=== PATIENT | female | born 1950 | race Caucasian/White ===

== ENCOUNTER 2021-02-01 08:53 | Outpatient (CLI) | payer MEDICARE, OTHER | END 2021-02-01 08:54 | disposition home or self-care (01) | LOC: CSHMAMMO 08:53 | PROVIDERS: ATTEND Obstetrics & Gynecology | DX: N63.20 Unspecified lump in the left breast, unspecified quadrant (principal) | CPT/HCPCS: 76642; 77065; G0279 ==

== ENCOUNTER 2021-11-26 14:50 | Outpatient (CLI) | payer MEDICARE, OTHER | END 2021-11-26 14:51 | disposition home or self-care (01) | LOC: CSHLAB 14:50 | PROVIDERS: ATTEND Family Medicine | DX: Z20.822 Contact with and (suspected) exposure to COVID-19 (principal) | CPT/HCPCS: 87811 ==

== ENCOUNTER 2021-12-01 08:28 | Outpatient (CLI) | payer MEDICARE, OTHER | END 2021-12-01 08:29 | disposition home or self-care (01) | LOC: CSHRAD 08:28 | PROVIDERS: ATTEND Family Medicine | DX: G35 Multiple sclerosis (principal); R13.10 Dysphagia, unspecified; K22.89 Other specified disease of esophagus; K21.9 Gastro-esophageal reflux disease without esophagitis; K44.9 Diaphragmatic hernia without obstruction or gangrene | CPT/HCPCS: 74220 ==

== ENCOUNTER 2022-02-02 09:47 | Outpatient (CLI) | payer MEDICARE, OTHER | END 2022-02-02 09:48 | disposition home or self-care (01) | LOC: CSHMAMMO 09:47 | PROVIDERS: ATTEND Family Medicine | DX: Z12.31 Encounter for screening mammogram for malignant neoplasm of breast (principal) | CPT/HCPCS: 77063; 77067 ==

== ENCOUNTER 2023-03-20 13:25 | Outpatient (CLI) | payer MEDICARE, OTHER | END 2023-03-20 13:26 | disposition home or self-care (01) | LOC: CSHMAMMO 13:25 | PROVIDERS: ATTEND Family Medicine | DX: Z12.31 Encounter for screening mammogram for malignant neoplasm of breast (principal) | CPT/HCPCS: 77063; 77067 ==

== ENCOUNTER 2023-10-11 12:53 | Outpatient (CLI) | payer MEDICARE, OTHER | END 2023-10-11 12:54 | disposition home or self-care (01) | LOC: CSHMAMMO 12:53 | PROVIDERS: ATTEND Internal Medicine Rheumatology | DX: M81.0 Age-related osteoporosis without current pathological fracture (principal); M85.852 Other specified disorders of bone density and structure, left thigh | CPT/HCPCS: 77080 ==

== ENCOUNTER 2024-03-21 09:33 | Outpatient (CLI) | payer MEDICARE, OTHER | END 2024-03-21 09:34 | disposition home or self-care (01) | LOC: CSHMAMMO 09:33 | PROVIDERS: ATTEND Family Medicine | DX: Z12.31 Encounter for screening mammogram for malignant neoplasm of breast (principal) | CPT/HCPCS: 77063; 77067 ==

== ENCOUNTER 2024-12-05 08:16 | Outpatient (CLI) | payer MEDICARE, OTHER ==
[2024-12-05 10:34] LABS: Estimated GFR - POC 59.0
== END 2024-12-05 08:17 | disposition home or self-care (01) ==
LOC: CSHCT 08:16
PROVIDERS: ATTEND Physician Assistant
DX: R91.1 Solitary pulmonary nodule (principal)
CPT/HCPCS: 71260; 82565